=== PATIENT | male | born 1990 | race Caucasian/White ===

== ENCOUNTER 2017-05-22 20:20 | Emergency (ER) | payer OTHER ==
[2017-05-22] MEDS ORDERED: LORazepam 2 MG/ML INJ IVP ONE ×3 (20:35→22:50)
[2017-05-22] MEDS ORDERED: NS 1,000 ML IV ONE (20:35)
[2017-05-22] MEDS ORDERED: FOLIC ACID 1 MG TAB PO ONE (20:38)
[2017-05-22] MEDS ORDERED: THIAMINE HCL 100 MG TAB PO ONE (20:38)
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
[2017-05-22 20:47] LABS: PLATELET COUNT 202 10^3/uL (150-400)
[2017-05-22] MEDS ORDERED: ONDANSETRON 4 MG/2 ML VIAL ONE (20:51)
[2017-05-22] MEDS ORDERED: LORazepam 2 MG/ML INJ ONE (20:53)
[2017-05-22] MEDS ORDERED: ONDANSETRON 4 MG/2 ML VIAL IVP ONE (20:57)
[2017-05-22] MEDS ORDERED: LORazepam 1 MG TAB PO PRN (21:49)
[2017-05-22] MEDS ORDERED: LORazepam 2 MG/ML INJ IVP PRN (21:49)
--- NOTE | 2017-05-22 21:51 | CPEKG ---
Heart Rate: 109 RR Interval: 550 P-R Interval: 148 QRSD Interval: 88 QT Interval: 308 QTC Interval: 415 P [place]: 50 QRS [place]: 5 T Wave [place]: 12 EKG Severity - BORDERLINE ECG - EKG Impression: SINUS TACHYCARDIA EKG Impression: BORDERLINE ST ELEVATION, ANTERIOR LEADS Electronically Signed By: Oc Dash 24-May-2017 12:51:36
[2017-05-22] MEDS ORDERED: CHLORDIAZEPOXIDE 25MG PREPK#6 BTL TAKEHOME ONE (23:59)
[2017-05-22] MEDS ORDERED: chlordiazePOXIDE 25 MG CAP PO ONE (23:59)
[2017-05-23 00:10] VITALS: BP 152/93; PULSE 98; RESP 18; TEMP 98.6; O2SAT 95
[2017-05-23] MEDS ORDERED: chlordiazePOXIDE 25 MG CAP ONE (00:11)
== END 2017-05-23 00:18 | disposition home or self-care (01) ==
DX: F10.230 Alcohol dependence with withdrawal, uncomplicated (principal); Z87.891 Personal history of nicotine dependence
CPT/HCPCS: 96374; G0480; J2060; J2405